=== PATIENT | female | born 1955 | race Caucasian/White ===

== ENCOUNTER 2020-04-01 20:47 | Emergency (ER) | payer SELFPAY ==
[~2020-04-01] VITALS: Ht 154.9 cm; Wt 58.1 kg
[2020-04-01 20:52] VITALS: BP 185/112
--- NOTE | 2020-04-01 21:00 | NUR ---
PT TAKEN TO BED 04 VIA WHEELCHAIR.
--- NOTE | 2020-04-01 21:04 | NUR ---
PT WAS TAKEN TO BED 04 VIA WHEEL CHAIR
--- NOTE | 2020-04-01 21:12 | NUR ---
PT TAKEN TO CT VIA ALEISHA
[2020-04-01] MEDS ORDERED: ONDANSETRON 4 MG/2 ML VIAL IVP ONE (21:35)
--- NOTE | 2020-04-01 21:35 | NUR ---
RETURN FROM CT
[2020-04-01] MEDS ORDERED: KETOROLAC 15 MG/ML VIAL IVP ONE (21:40)
[2020-04-01] MEDS ORDERED: BACITRACIN OINT 500 UNITS/GM PKT TP ONE (21:45)
[2020-04-01 22:07] VITALS: BP 137/81
--- NOTE | 2020-04-01 22:08 | NUR ---
Patient discharged with v/s stable. Written and verbal after care instructions given and explained. Patient alert, oriented and verbalized understanding of instructions. Ambulatory with steady gait. All questions addressed prior to discharge. ID band removed. Patient advised to follow up with PMD. Rx of MOTRIN 800 MG, ZOFRAN ODT 4 MG given. Patient educated on indication of medication including possible reaction and side effects. Opportunity to ask questions provided and answered. pt is aaox4, no other concerns noted. pt d/c. pt h/l d/c.
== END 2020-04-01 22:08 | disposition home or self-care (01) ==
LOC: MED 20:47
DX: S09.8XXA Other specified injuries of head, initial encounter (principal); E11.9 Type 2 diabetes mellitus without complications; W18.39XA Other fall on same level, initial encounter; Y93.89 Activity, other specified; Y92.89 Other specified places as the place of occurrence of the external cause; Y99.8 Other external cause status
CPT/HCPCS: 70450; 72125; 96374; 96375; 99285; J1885; J2405

== ENCOUNTER 2020-10-30 14:07 | Emergency (ER) | payer MEDICAID ==
[~2020-10-30] VITALS: Ht 162.6 cm; Wt 68.9 kg
[2020-10-30 14:22] VITALS: BP 116/76
[2020-10-30] MEDS ORDERED: DICYCLOMINE HCL LIQUID 20 MG, ALUMINUM HYD/MAG/SIMETHICONE 30 ML, LIDOCAINE VISCOUS 2% ... PO ONE ×3 (14:25)
[2020-10-30] MEDS ORDERED: NACL 0.9% 1,000 ML IV ONE (14:25)
[2020-10-30] MEDS ORDERED: ONDANSETRON 4 MG ODT PO ONE (14:25)
--- NOTE | 2020-10-30 14:26 | NUR ---
triaged and waiting in lobby.
[2020-10-30] MEDS ORDERED: LIDOCAINE VISCOUS 2% 20 ML UDC ONE (14:50)
[2020-10-30] MEDS ORDERED: DICYCLOMINE HCL LIQUID 10 MG/5 ML UDC ONE (14:51)
[2020-10-30] MEDS ORDERED: ALUMINUM HYD/MAG/SIMETHICONE 30 ML UDC ONE (14:51)
[2020-10-30 15:08] LABS: BASOPHILS # (AUTO) 0.1 K/uL (0.00-0.22); BASOPHILS % (AUTO) 0.7 % (0.0-2.0); EOSINOPHILS % (AUTO) 0.2 % (0.0-4.0); HEMATOCRIT 38.6 % (36-48); HEMOGLOBIN 13.4 g/dL (12.0-16.0); LYMPHOCYTES # (AUTO) 1.8 K/uL (2.5-16.5); LYMPHOCYTES % (AUTO) 20.1 % (20.5-51.1); MEAN CORPUSCULAR HEMOGLOBIN 30 pg (27-31); MEAN CORPUSCULAR HGB CONC 35 g/dL (33-37); MONOCYTES # (AUTO) 0.4 K/uL (0.8-1.0); MONOCYTES % (AUTO) 4.7 % (1.7-9.3); NEUTROPHILS # (AUTO) 6.7 K/uL (1.8-7.7); NEUTROPHILS % (AUTO) 74.3 % (42.2-75.2); PLATELET COUNT (AUTO) 275 K/uL (140-450); RED BLOOD CELL COUNT(AUTO) 4.49 MIL/uL (4.20-5.40); RED CELL DISTRIBUTION WIDTH 13.5 % (11.6-13.7); WHITE BLOOD COUNT (AUTO) 9.1 K/uL (4.8-10.8)
[2020-10-30 15:17] LABS: ALBUMIN 3.7 g/dL (3.4-5.0); ANION GAP 15.2 (8-16); CARBON DIOXIDE 26.5 mmol/L (21-32); CREATININE 1.1 mg/dL (0.6-1.3); POTASSIUM 3.7 mmol/L (3.5-5.1); TOTAL BILIRUBIN 0.6 mg/dL (0.0-1.0)
[2020-10-30] MEDS ORDERED: PROCHLORPERAZINE 10 MG/2 ML VIAL IVP ONE (17:10)
[2020-10-30] MEDS ORDERED: ACETAMINOPHEN 325 MG TAB PO ONE (17:10)
[2020-10-30 17:45] VITALS: BP 114/80
--- NOTE | 2020-10-30 18:27 | NUR ---
s/w Nemesio to fruit or nut picker pt in 20 mins.
--- NOTE | 2020-10-30 18:31 | NUR ---
Patient discharged with v/s stable. Written and verbal after care instructions given and explained. Patient alert, oriented and verbalized understanding of instructions. Ambulatory with steady gait. All questions addressed prior to discharge. ID band removed. Patient advised to follow up with PMD. Rx of cipro, zofran and motrin given. Patient educated on indication of medication including possible reaction and side effects. Opportunity to ask questions provided and answered.
== END 2020-10-30 18:31 | disposition home or self-care (01) ==
LOC: MED 14:07
DX: K52.9 Noninfective gastroenteritis and colitis, unspecified (principal); K80.50 Calculus of bile duct without cholangitis or cholecystitis without obstruction; R11.2 Nausea with vomiting, unspecified
CPT/HCPCS: 36415; 74177; 80053; 82948; 83690; 84484; 85025; 93005; 96361; 96375; 99285; J0780; J7030; Q0162; Q9967

== ENCOUNTER 2022-02-14 14:15 | Inpatient (IN) | payer MEDICAID ==
[~2022-02-14] VITALS: Ht 167.6 cm; Wt 59.0 kg
[2022-02-14] MEDS ORDERED: NACL 0.9% 1,000 ML IV ONE (14:25)
[2022-02-14 14:28] VITALS: BP 148/74
--- NOTE | 2022-02-14 14:28 | NUR ---
PT AMB WITH SON TO BED 1.
--- NOTE | 2022-02-14 15:20 | NUR ---
67/F BIB SON WITH C/O LEFT FOOT, JAW AND ARM NUMBNESS X3 DAYS. PATIENT STATES NO HX OF HAVING THIS NUMBNESS BEFORE, DENIES PIN, PATIENT REPORTS FEELING OF NEEDLES GOING DOWN HER ARM, PATIENT ALSO C/O INTERMITTENT EPISODES OF DIZZINESS. PATIENT DENIES FEVER, CHILLS, CP, SOB OR HEADACHE.
--- NOTE | 2022-02-14 15:31 | NUR ---
PATIENT AMBULATORY TO RESTROOM WITH ASSISTANCE FOR URINE SAMPLE.
[2022-02-14 15:33] LABS: BASOPHILS # (AUTO) 0.1 K/uL (0.00-0.22); BASOPHILS % (AUTO) 0.8 % (0.0-2.0); EOSINOPHILS % (AUTO) 0.4 % (0.0-4.0); HEMOGLOBIN 11.8 g/dL (12.0-16.0); LYMPHOCYTES % (AUTO) 13.3 % (20.5-51.1); MEAN CORPUSCULAR HEMOGLOBIN 30 pg (27-31); MEAN CORPUSCULAR HGB CONC 35 g/dL (33-37); MEAN CORPUSCULAR VOLUME 87.4 fL (80-94); MONOCYTES # (AUTO) 0.3 K/uL (0.8-1.0); MONOCYTES % (AUTO) 3.9 % (1.7-9.3); NEUTROPHILS # (AUTO) 5.9 K/uL (1.8-7.7); NEUTROPHILS % (AUTO) 81.6 % (42.2-75.2); PLATELET COUNT (AUTO) 208 K/uL (140-450); RED BLOOD CELL COUNT(AUTO) 3.89 MIL/uL (4.20-5.40); RED CELL DISTRIBUTION WIDTH 13.6 % (11.6-13.7); WHITE BLOOD COUNT (AUTO) 7.2 K/uL (4.8-10.8)
[2022-02-14 15:59] LABS: ALBUMIN 2.9 g/dL (3.4-5.0); ANION GAP 13.5 (8-16); ASPARTATE AMINOTRANSFERASE 20 U/L (15-37); CARBON DIOXIDE 25.2 mmol/L (21-32); CHLORIDE 103 mmol/L (98-107); CREATININE 1.8 mg/dL (0.6-1.3); GFR ARICAN-AMERICAN 36 mL/min (>90); GLUCOSE 244 mg/dL (74-106); POTASSIUM 4.7 mmol/L (3.5-5.1); SODIUM SERUM 137 mmol/L (136-145); TOTAL BILIRUBIN 0.4 mg/dL (0.0-1.0); UREA NITROGEN, BLOOD 31 mg/dL (7-18)
[2022-02-14 16:12] LABS: APPEARANCE,URINE CLEAR (CLEAR); BILIRUBIN,URINE NEGATIVE (NEGATIVE); BLOOD, URINE TRACE-I (NEGATIVE); COLOR,URINE YELLOW (YELLOW); LEUKOCYTE ESTERASE ,URINE NEGATIVE (NEGATIVE); NITRITE, URINE NEGATIVE (NEGATIVE); UGLUCOSE 1+ (NEGATIVE)
--- NOTE | 2022-02-14 16:37 | NUR ---
MAGALIE SWAB COLLECTED AND WALKED TO LAB
[2022-02-14 16:47] LABS: RBC,URINE NONE SEEN /HPF (0-5); WBC,URINE 0-5 /HPF (0-5)
[2022-02-14] MEDS ORDERED: ASPIRIN 325 MG TAB PO ONE (16:55)
[2022-02-14] MEDS ORDERED: METO25TE2 PO (18:08)
[2022-02-14] MEDS ORDERED: LISI20TA29 PO (18:08)
[2022-02-14] MEDS ORDERED: METF-349 PO (18:08)
[2022-02-14] MEDS ORDERED: ASPI-1822 PO (18:08)
--- NOTE | 2022-02-14 18:25 | NUR ---
Patient will be admitted to care of DR. BURR. Admited to TELE. Will go to room 107S. Belongings list completed. BEDSIDE REPORT TO GIRMA GASPAR.
--- NOTE | 2022-02-14 18:35 | NUR ---
PT ARRIVED TO UNIT VIA GURNEY. PT AMBULATED TO BED. A&OX4. ANSWERS QUESTIONS APPROPRIATELY. ON RA WITH BREATHING UNLABORED. SKIN IS WARM, DRY, AND INTACT. CONTINENT OF THE BOWEL AND BLADDER. IV IS INTACT AND IN PLACE. PT IS STABLE. PLAN OF CARE DISCUSSED WITH ER NURSE WHO PROVIDED BEDSIDE REPORT.
--- NOTE | 2022-02-14 18:45 | NUR ---
VS WERE TAKEN. BP IS 185/84 AND HR 83. MESSAGED DR. BURR TO INFORM HER OF THE BP. PT STATES SHE HAS NO HEADACHE OR DIZZINESS AT THIS TIME. DENIES ANY PAIN. DENIES ANY ISSUES. INFORMED DR. BURR. SHE STATED TO RESTART TWO HOME MEDS LISINOPRIL AND METOPROLOL. RESTARTED THESE MEDS AND WILL GIVE ONE TIME DOSE NOW ORDERED.
[2022-02-14] MEDS ORDERED: lisinopriL 20 MG TAB PO SCH (19:00)
[2022-02-14] MEDS ORDERED: METOPROLOL SUCCINATE 50 MG TABER PO SCH (19:00)
[2022-02-14] MEDS: NACL 0.9% 1,000 ML IV SCH (19:12)
--- NOTE | 2022-02-14 19:15 | NUR ---
RECHECKED BP AND IT WAS 166/85. WILL ENDORSE TO FIELD ARTILLERY BASIC NURSE.
--- NOTE | 2022-02-14 19:40 | NUR ---
ENDORSED PT TO SWITCH INSPECTOR NURSE FOR CONTINUITY OF CARE. PT IS STABLE. PLAN OF CARE DISCUSSED.
[2022-02-14 20:00] VITALS: BP 166/96
[2022-02-14] MEDS ORDERED: MAG SULF 2000 MG/WATER PREMIX 50 ML IV PRN ×2 (22:05→22:30)
[2022-02-14] MEDS ORDERED: DEXTROSE 50% 50 ML SYR IVP PRN ×2 (22:05→22:30)
[2022-02-14] MEDS ORDERED: POTASSIUM CHLORIDE 10 MEQ TABER PO PRN ×2 (22:05→22:30)
[2022-02-14] MEDS ORDERED: INSULIN LISPRO SLIDING SCALE 100 UNITS/ML VIAL SUBQ PRN (22:05)
[2022-02-14] MEDS ORDERED: MECLIZINE 25 MG TAB PO PRN ×3 (22:10)
--- NOTE | 2022-02-14 22:54 | NUR ---
PATIENT SLEEPING SINUS ON MONITOR TEMP 97.8 B/P 1999 166/96 WAS GIVEN TOPROL XL 25MG AT 1859 HAS NS INFUSING AT 120 HOUR. LUNGS CLEAR SAT AT 100% NO DISTRESS NOTED.
[2022-02-15] VITALS: BP 160/91
[2022-02-15 04:00] VITALS: BP_SYST 155
[2022-02-15 07:19] LABS: BASOPHILS % (AUTO) 0.7 % (0.0-2.0); EOSINOPHILS # (AUTO) 0.1 K/uL (0-0.4); HEMATOCRIT 31.4 % (36-48); HEMOGLOBIN 10.9 g/dL (12.0-16.0); LYMPHOCYTES # (AUTO) 1.8 K/uL (2.5-16.5); LYMPHOCYTES % (AUTO) 28.7 % (20.5-51.1); MEAN CORPUSCULAR HEMOGLOBIN 30 pg (27-31); MEAN CORPUSCULAR HGB CONC 35 g/dL (33-37); MEAN CORPUSCULAR VOLUME 87.5 fL (80-94); MONOCYTES # (AUTO) 0.4 K/uL (0.8-1.0); MONOCYTES % (AUTO) 6.7 % (1.7-9.3); NEUTROPHILS % (AUTO) 62.9 % (42.2-75.2); PLATELET COUNT (AUTO) 193 K/uL (140-450); RED BLOOD CELL COUNT(AUTO) 3.58 MIL/uL (4.20-5.40); RED CELL DISTRIBUTION WIDTH 13.9 % (11.6-13.7); WHITE BLOOD COUNT (AUTO) 6.4 K/uL (4.8-10.8)
[2022-02-15] MEDS ORDERED: BLOOD GLUCOSE MONITORING 1 DEV DEV FS SCH (07:30)
[2022-02-15 07:51] LABS: ANION GAP 13.4 (8-16); CARBON DIOXIDE 23.8 mmol/L (21-32); CREATININE 1.2 mg/dL (0.6-1.3); POTASSIUM 4.2 mmol/L (3.5-5.1)
[2022-02-15 07:59] LABS: MAGNESIUM 1.9 mg/dL (1.8-2.4)
[2022-02-15 08:00] VITALS: BP 166/86
--- NOTE | 2022-02-15 08:40 | NUR ---
PATIENT HAS BEEN SCREENED AND CATEGORIZED MODERATE NUTRITION RISK. PATIENT WILL BE SEEN WITHIN 3-5 DAYS OF ADMISSION. [address]
[2022-02-15] MEDS: ASPIRIN 81 MG TAB.CHEW PO SCH (08:49)
[2022-02-15] MEDS: METOPROLOL SUCCINATE 50 MG TABER PO SCH (08:49)
[2022-02-15] MEDS: lisinopriL 20 MG TAB PO SCH (08:50)
[2022-02-15] MEDS ORDERED: metFORMIN 850 MG TAB PO SCH (09:00)
--- NOTE | 2022-02-15 09:15 | NUR ---
Dr. Fortune notified of orthostatic BP readings: 183/84 P85 lying 162/77 P88 sitting 120/62 P91 standing. Pt denies any dizziness or vision changes during position change. Per doctor, continue to monitor.
[2022-02-15] MEDS: metFORMIN 500 MG TAB PO SCH (09:39)
[2022-02-15] MEDS: BLOOD GLUCOSE MONITORING 1 DEV DEV FS SCH ×4 (11:30→22:00)
[2022-02-15 12:00] VITALS: BP 186/86
[2022-02-15] MEDS ORDERED: hydrALAZINE 20 MG/ML VIAL IVP PRN (12:00)
[2022-02-15] MEDS: NACL 0.9% 1,000 ML IV SCH (12:00)
[2022-02-15] MEDS: hydrALAZINE 10 MG TAB PO SCH ×2 (12:41→16:26)
--- NOTE | 2022-02-15 16:00 | NUR ---
Dr. Fortune notified of BP 167/77 after Hydralazine IVP. Awaiting reply. Addendum: 02/15/22 at 1611 by Lauren Chamberlain RN Addendum: Pt asymptomatic, denies any chest pain, headache, nausea. Pt is aaox4.
--- NOTE | 2022-02-15 16:03 | NUR ---
DC PLANN[age] YRS OLD FEMALE PATIENT WAS ADMITTED FROM HOME WITH A DX OF SYNCOPE DEHYDRATION. PATIENT HAS A HX OF ALOPECIA, DM, HTN COLITIS AND CATARACTS. CXR SHOWED NO ACUTE CARDIOPULMONARY DISEASE. CT HEAD NEGATIVE CAROTID US NO HEMODYNAMICALLY SIGNIFICANT CAROTID STENOSIS IS IDENTIFIED. RAPID COVID TEST NEGATIVE. ADMINISTERED IVF, AND CONTINUED HOME MEDS. CONSULTED WITH NEUROLOGIST. DC PLAN TO GO HOME WHEN STABLE. CM TO FOLLOW. Addendum: 02/16/22 at 1310 by Chuyita Muro RN DC PLANNING: AWAITING FOR NEURO CONSULT CONTINUE IVF FOR HYDRATION. CM TO FOLLOW
[2022-02-15 18:00] VITALS: BP 160/77
[2022-02-16] MEDS: metFORMIN 500 MG TAB PO SCH ×3 (00:55→21:01)
[2022-02-16] MEDS: INSULIN LISPRO SLIDING SCALE 100 UNITS/ML VIAL SUBQ PRN ×4 (02:16→21:10)
[2022-02-16] MEDS: NACL 0.9% 1,000 ML IV SCH ×2 (03:05→19:45)
[2022-02-16] MEDS ORDERED: ZOLPIDEM 5 MG TAB PO PRN (03:55)
[2022-02-16 06:50] LABS: BASOPHILS # (AUTO) 0.1 K/uL (0.00-0.22); BASOPHILS % (AUTO) 0.7 % (0.0-2.0); EOSINOPHILS % (AUTO) 0.4 % (0.0-4.0); HEMATOCRIT 32.6 % (36-48); HEMOGLOBIN 11.3 g/dL (12.0-16.0); LYMPHOCYTES # (AUTO) 1.3 K/uL (2.5-16.5); MEAN CORPUSCULAR HEMOGLOBIN 31 pg (27-31); MEAN CORPUSCULAR HGB CONC 35 g/dL (33-37); MEAN CORPUSCULAR VOLUME 88.2 fL (80-94); MONOCYTES # (AUTO) 0.4 K/uL (0.8-1.0); MONOCYTES % (AUTO) 5.9 % (1.7-9.3); NEUTROPHILS # (AUTO) 5.8 K/uL (1.8-7.7); PLATELET COUNT (AUTO) 197 K/uL (140-450); RED BLOOD CELL COUNT(AUTO) 3.69 MIL/uL (4.20-5.40); RED CELL DISTRIBUTION WIDTH 14.2 % (11.6-13.7); WHITE BLOOD COUNT (AUTO) 7.6 K/uL (4.8-10.8)
--- NOTE | 2022-02-16 07:15 | NUR ---
RECEIVED REPORT FROM QUALITY ENGINEERING MANAGER NURSE FOR CONTINUITY OF CARE. PT IS IN BED SLEEPING AT THIS TIME, PER QUALITY ENGINEERING MANAGER NURSE, PT HAD DIFFICULTY FALLING ASLEEP DURING QUALITY ENGINEERING MANAGER. RESPIRATIONS ARE EVEN AND UNLABORED ON ROOM AIR. NO SIGNS OF DISTRESS NOTED. NO SIGNS OF PAIN OR DISCOMFORT NOTED. PT IS LITHUANIAN SPEAKING ONLY, BUT ABLE TO VERBALIZE NEEDS. PT IS ON CARDIAC MONITORING, SR. PT IS ON CCHO DIET. ABD IS NONTENDER, NONDISTENDED WITH BOWEL SOUNDS PRESENT. PT HAS NO IV ACCESS AT THIS TIME. PER QUALITY ENGINEERING MANAGER NURSE, PT IV CAME OUT DURING QUALITY ENGINEERING MANAGER AND QUALITY ENGINEERING MANAGER NURSE DID NOT ATTEMPT NEW IV ACCESS. THIS NURSE WILL ATTEMPT IV ACCESS. CALL LIGHT WITHIN REACH. ALL SAFETY MEASURES IN PLACE. WILL CONTINUE TO MONITOR.
[2022-02-16 07:33] LABS: MAGNESIUM 1.7 mg/dL (1.8-2.4); PHOSPHORUS 3.5 mg/dL (2.5-4.9)
[2022-02-16 08:00] VITALS: BP 163/90
[2022-02-16 08:07] LABS: ANION GAP 12.8 (8-16); CARBON DIOXIDE 23.2 mmol/L (21-32); CREATININE 1.2 mg/dL (0.6-1.3)
[2022-02-16] MEDS: BLOOD GLUCOSE MONITORING 1 DEV DEV FS SCH ×4 (08:29→21:02)
--- NOTE | 2022-02-16 08:36 | NUR ---
PT GETTING OUT OF BED, PT VERY CONFUSED AT THIS TIME. NEW IV PLACED, L FA 24G. WILL CONTINUE TO MONITOR.
--- NOTE | 2022-02-16 08:48 | NUR ---
PT PULLED OUT IV. EDUCATED PT REGARDING NEED FOR IV ACCESS. PT VERY CONFUSED, STATING SHE NEEDS TO GO HOME. WILL ATTEMPT NEW IV ACCESS.
[2022-02-16] MEDS: ASPIRIN 81 MG TAB.CHEW PO SCH (09:04)
[2022-02-16] MEDS: hydrALAZINE 10 MG TAB PO SCH ×3 (09:04→17:27)
[2022-02-16] MEDS: METOPROLOL SUCCINATE 50 MG TABER PO SCH (09:05)
[2022-02-16] MEDS: lisinopriL 20 MG TAB PO SCH (09:06)
--- NOTE | 2022-02-16 09:40 | NUR ---
PT FOUND AMBULATING OUT OF HER ROOM, ATTEMPTING TO ENTER ANOTHER PT ROOM. RE-ORIENTED PT BACK TO HER ROOM. PT THEN STARTED YELLING THAT SHE WANTS TO GO HOME. PT BEGAN TO PULL AT LINES. PT NOW LYING IN BED. WILL CONTINUE TO MONITOR.
--- NOTE | 2022-02-16 11:50 | NUR ---
ATTEMPT IV ACCESS, PT REFUSED. WILL ATTEMPT AT A LATER TIME.
[2022-02-16 12:00] VITALS: BP 113/72
[2022-02-16] MEDS ORDERED: lisinopriL 20 MG TAB PO SCH (12:00)
[2022-02-16] MEDS ORDERED: ALPRAZolam 0.5 MG TAB PO PRN (12:00)
[2022-02-16] MEDS: MAGNESIUM OXIDE 400 MG TAB PO SCH (14:05)
--- NOTE | 2022-02-16 14:06 | NUR ---
PT MAGNESIUM 1.7, RECEIVED ORDER FOR PO MAG OX. ADMINISTERED MAG OX. WILL CONTINUE TO MONITOR.
--- NOTE | 2022-02-16 14:29 | NUR ---
RECEIVED ORDER FROM DR. ESPARZA TO DOWNGRADE TO MED SURG.
[2022-02-16 16:00] VITALS: BP 169/96
--- NOTE | 2022-02-16 16:15 | NUR ---
RECEIVED REPORT FROM BRACELET AND BROOCH MAKER FOR CONTINUITY OF CARE. POC DISCUSSED. PT AWAKE AND ALERT. MALAYSIAN SPEAKING. AT TIMES CONFUSED. NO SOB OR RESPIRATORY DISTRESS. ON RA. DENIES PAIN AT THIS TIME. SAFETY MEASURES IN PLACE. WILL CONTINUE TO MONITOR CLOSELY.
--- NOTE | 2022-02-16 17:00 | NUR ---
SON, RAIZA AT BEDSIDE. ALL QUESTIONS ANSWERED. SON STATES PT SOMETIMES HAS "CONFUSION". SON STATES IF HE CAN BRING FOOD FOR PT. EXPLAINED WILL CALL [employer] FOR FRUIT DELIVERY TO PT. CONTACTED ROLL INSPECTOR OFFICE. NO ANSWER. WILL F/U.
--- NOTE | 2022-02-16 19:19 | NUR ---
REPORT GIVEN TO NIGHTSHIFT NURSE FOR CONTINUITY OF CARE.
--- NOTE | 2022-02-16 19:20 | NUR ---
RECEIVED PATIENT FROM ERON GASPAR FOR CONTINUITY OF CARE. PATIENT IN BED ASLEEP ON ROOM AIR BREATHING EVEN AND UNLABORED. NO NOTED IV SITE D/T PULLED THEM OUT. MD AWARE AND OK TO HAVE ON IV SITE. NURSING WILL ANTICIPATE PATIENTS NEEDS WITH MORE FREQUENCY BECAUSE OF DIAGNOSIS AND LIKES TO GET OUT OF THE BED. BED AT THE LOWEST LEVEL, SIDE RAILS UP X 2 FOR SUPPORT, AND CALL LIGHT WITHIN REACH. PATIENT WAS ENCOURAGED TO USE THE CALL LIGHT FOR ALL AND ANY ASSISTANCE. [email or web address]
[2022-02-16 20:00] VITALS: BP 162/96
--- NOTE | 2022-02-16 20:00 | NUR ---
Patient's Plan of Care was discussed and reviewed with AUTOMOTIVE SERVICE ASSISTANT: LYNN BUTCHER
[2022-02-16] MEDS ORDERED: CLONIDINE HYDROCHLORIDE 0.1 MG TAB PO PRN (22:35)
--- NOTE | 2022-02-16 23:39 | NUR ---
PATIENT BLOOD PRESSURE WAS CHECKED TWICE ON BOTH ARMS 1ST NOTED AT 162/96 AND AFTER 2 MINUTES 190/110. MD WAS CALLED FOR ORDERS FOR PRN ORALLY. ORDER WAS PLACED AND GIVEN TO PATIENT. [email or web address]
[2022-02-17] VITALS: BP 136/81
--- NOTE | 2022-02-17 00:39 | NUR ---
PATIENT IN BED AWAKE. BLOOD PRESSURE NOTED 136/81. MEDICATION WAS EFFECTIVE. [email or web address]
--- NOTE | 2022-02-17 00:43 | NUR ---
PATIENT WAS NOTED OUT OF HER BED SITTING ON THE TRASH CAN. NURSE ASSISTED HER BACK TO BED EXPLAINED SHE WAS IN THE HOSPITAL AND NEEDED TO SLEEP. PRN FOR INSOMNIA WAS GIVEN. NURSING WILL MONITOR FOR AFFECTS OF MEDICATION. [email or web address]
--- NOTE | 2022-02-17 02:03 | NUR ---
PATIENT CAME OUT OF HE ROOM CONFUSED WANTING TO CALL HER SON. PATIENT WAS EXPLAINED IT WAS TOO EARLY IN THE MORNING AND LATER ON SHE GETS HER REST WE WILL CALL HIM. PATIENT REQUESTED A SNACK AND NURSING GAVE HER SNACK ENCOURAGED PATIENT TO GET SOME SLEEP. SLEEP PRN WAS NOT EFFECTIVE. NURSING WILL CONTINUE TO MONITOR FOR SAFETY REORIENTATION. [email or web address]
--- NOTE | 2022-02-17 03:26 | NUR ---
PATIENT SHOWING S/SX OF ANXIETY. WANTS TO CALL HER SON, CONTINUES TO KEEP GETTING OUT OF BED, AND ATTEMPTS TO WANDER THE HALLWAY. PATIENT CAN ANS WILL FOLLOW REDIRECTIONS BACK TO HER BED. NURSE GAVE PRN FOR ANXIETY. PATIENT TOOK THE MEDICATION WITHOUT INCIDENT. NURSING WILL RE-EVALUATED IN ONE HOUR. [email or web address]
--- NOTE | 2022-02-17 04:26 | NUR ---
PATIENT IN HER BED ASLEEP. NO NOTED ACUTE RESPIRATORY DISTRESS. PATIENT IS BREATHING EVENLY. SIDE RAILS UP. ALL SAFETY MEASURES ARE IN PLACE. CALL LIGHT WITHIN REACH. [email or web address]
[2022-02-17] MEDS: BLOOD GLUCOSE MONITORING 1 DEV DEV FS SCH ×2 (06:11→11:31)
[2022-02-17] MEDS: INSULIN LISPRO SLIDING SCALE 100 UNITS/ML VIAL SUBQ PRN ×2 (06:11→12:27)
--- NOTE | 2022-02-17 07:12 | NUR ---
RECEIVED REPORT FROM PORTFOLIO ADMINISTRATOR NURSE FOR CONTINUITY OF CARE. PT ASLEEP IN BED. BREATHING SYMMETRICAL ON ROOM AIR. NOTED WITH ALOPECIA, NO IV LINE NOTED. FLACC O. CALL LIGHT WITHIN REACH. ALL SAFETY MEASURES IN PLACE.
--- NOTE | 2022-02-17 07:16 | NUR ---
GAVE SHIFT REPORT TO JAMAR GASPAR FOR CONTINUITY OF CARE. PATIENT REMAINS IN BED ASLEEP. [email or web address]
[2022-02-17 07:24] LABS: BASOPHILS # (AUTO) 0.1 K/uL (0.00-0.22); BASOPHILS % (AUTO) 0.6 % (0.0-2.0); EOSINOPHILS % (AUTO) 0.2 % (0.0-4.0); HEMATOCRIT 31.9 % (36-48); HEMOGLOBIN 11.2 g/dL (12.0-16.0); LYMPHOCYTES # (AUTO) 1.5 K/uL (2.5-16.5); LYMPHOCYTES % (AUTO) 19.1 % (20.5-51.1); MEAN CORPUSCULAR HEMOGLOBIN 31 pg (27-31); MEAN CORPUSCULAR HGB CONC 35 g/dL (33-37); MEAN CORPUSCULAR VOLUME 86.9 fL (80-94); MONOCYTES # (AUTO) 0.4 K/uL (0.8-1.0); MONOCYTES % (AUTO) 5.6 % (1.7-9.3); NEUTROPHILS # (AUTO) 5.9 K/uL (1.8-7.7); NEUTROPHILS % (AUTO) 74.5 % (42.2-75.2); PLATELET COUNT (AUTO) 191 K/uL (140-450); RED BLOOD CELL COUNT(AUTO) 3.67 MIL/uL (4.20-5.40); RED CELL DISTRIBUTION WIDTH 13.9 % (11.6-13.7)
[2022-02-17 07:25] LABS: ANION GAP 10.4 (8-16); CARBON DIOXIDE 25.6 mmol/L (21-32); CREATININE 1.3 mg/dL (0.6-1.3); MAGNESIUM 1.9 mg/dL (1.8-2.4); PHOSPHORUS 4.4 mg/dL (2.5-4.9)
[2022-02-17 08:00] VITALS: BP 160/91
[2022-02-17] MEDS ORDERED: METO100T14 PO (08:02)
[2022-02-17] MEDS ORDERED: LISI-487 PO (08:02)
[2022-02-17] MEDS: metFORMIN 500 MG TAB PO SCH (08:37)
[2022-02-17] MEDS: ASPIRIN 81 MG TAB.CHEW PO SCH (08:37)
[2022-02-17] MEDS: METOPROLOL SUCCINATE 50 MG TABER PO SCH (08:38)
[2022-02-17] MEDS: hydrALAZINE 10 MG TAB PO SCH ×2 (08:39→12:32)
[2022-02-17] MEDS: MAGNESIUM OXIDE 400 MG TAB PO SCH (08:39)
--- NOTE | 2022-02-17 08:45 | NUR ---
SCHEDULED AM MEDICATIONS GIVEN ORDERED. PT WITH CONFUSION, ABLE TO MAKE NEEDS KNOWN. DENIES PAIN AT THIS TIME
[2022-02-17 08:59] VITALS: BP 160/91
[2022-02-17] MEDS ORDERED: lisinopriL 20 MG TAB PO SCH (09:00)
--- NOTE | 2022-02-17 11:45 | NUR ---
CALLED RAIZA SON AND MADE AWARE OF DISCHARGE
[2022-02-17] MEDS: NACL 0.9% 1,000 ML IV SCH (12:25)
--- NOTE | 2022-02-17 13:36 | NUR ---
PT DISCHARGED TO HOME WITH BELONGINGS AND PAPERWORKS, PICKED UP BY SHANE EASTMAN. PT IN STABLE CONDITION
== END 2022-02-17 13:35 | disposition home or self-care (01) | DRG 48 ==
LOC: MED 14:15 → MTU 17:46
DX: G90.8 Other disorders of autonomic nervous system (principal); N17.0 Acute kidney failure with tubular necrosis; E44.0 Moderate protein-calorie malnutrition; E11.65 Type 2 diabetes mellitus with hyperglycemia; E86.0 Dehydration; D64.9 Anemia, unspecified; E83.42 Hypomagnesemia; L65.9 Nonscarring hair loss, unspecified; I10 Essential (primary) hypertension; I95.1 Orthostatic hypotension; Z20.822 Contact with and (suspected) exposure to COVID-19; Z79.82 Long term (current) use of aspirin; Z79.84 Long term (current) use of oral hypoglycemic drugs; Z79.899 Other long term (current) drug therapy; Z98.42 Cataract extraction status, left eye; Z98.41 Cataract extraction status, right eye; Z68.21 Body mass index [BMI] 21.0-21.9, adult
CPT/HCPCS: 36415; 70450; 71045; 80048; 80053; 81001; 82948; 83036; 83605; 83735; 84100; 84484; 85025; 87040; 87081; 87086; 93005; 93880; 96360; 97116; 97163-GP; 99285; J0360; J1644; J1815; J7030; Q0092